=== PATIENT | female | born 1980 | race Caucasian/White ===

== ENCOUNTER 2019-10-31 09:10 | Observation (INO) | payer MEDICAID ==
[~2019-10-31] VITALS: Ht 162.6 cm; Wt 63.9 kg
--- NOTE | 2019-10-31 09:35 | NUR ---
PT W/ C/O N/V X 3 DAYS, STARTED WITH DIARRHEA BUT NO LOOSE STOOLS FOR PAST 48 HRS. UNABLE TO TOLLERATE ANY FLUIDS. STEPHEN GANNON AT BEDSIDE, PT ASSESSMENT POC REVIEWED. ORDERS REC'D. BP AND SP02 MONITORING IN PLACE. CALL LIGHT W/I REACH
[2019-10-31] MEDS ORDERED: ONDANSETRON 2MG/ML, 2ML IVPush ONE (10:00)
[2019-10-31] MEDS ORDERED: ONDANSETRON 2MG/ML, 2ML ONE (10:00)
[2019-10-31] MEDS ORDERED: SODIUM CHLORIDE 0.9% 1,000ML IVBOLUS ONE ×2 (10:00→13:30)
[2019-10-31] MEDS ORDERED: SODIUM CHLORIDE FLUSH 10ML SYR IVF ONE (10:00)
[2019-10-31 10:15] LABS: MEAN CORPUSCULAR HEMOGLOBIN 37.6 pg (27.0-34.8); MEAN CORPUSCULAR HGB CONC 33.8 g/dL (32.4-35.8); MEAN CORPUSCULAR VOLUME 111.2 fL (80-100); MEAN PLATELET VOLUME 6.8 fL (7.4-10.4); PLATELET COUNT 127 x10^3/uL (130-400); RED BLOOD COUNT 3.76 x10^6/uL (3.82-5.3); RED CELL DISTRIBUTION WIDTH 13.2 % (9.6-15.2)
[2019-10-31 10:20] LABS: ALANINE AMINOTRANSFERASE 43 U/L (12-78); ALBUMIN 3.4 g/dL (3.4-5.0); ANION GAP 9 mmol/L (5-15); CALCIUM 7.8 mg/dL (8.5-10.1); CHLORIDE 106 mmol/L (98-107); CREATININE 0.58 mg/dL (0.55-1.02)
[2019-10-31 10:25] LABS: ALKALINE PHOSPHATASE 76 U/L (45-117); BILIRUBIN,TOTAL 0.7 mg/dL (0.2-1.0); TOTAL PROTEIN 6.8 g/dL (6.4-8.2)
[2019-10-31 10:34] LABS: CULTURE INDICATED? YES; MICROSCOPIC INDICATED
[2019-10-31 10:41] LABS: MD YES
[2019-10-31 10:47] LABS: BAND#(MANUAL) 0.83 x10^3/uL; BANDS%(MANUAL) 23 % (0-7); EOS#(MANUAL) 0.04 x10^3/uL (0.0-0.4); EOS% (MANUAL) 1 % (1-7); LYMPH#(MANUAL) 0.68 x10^3/uL (1-3.4); LYMPHS% (MANUAL) 19 % (22-44); MONOS#(MANUAL) 0.14 x10^3/uL (0.3-2.7); MONOS% (MANUAL) 4 % (2-9); SEG#(MANUAL) 1.91 x10^3/uL (1.8-6.8); SEGS% (MANUAL) 53 % (42-75)
[2019-10-31 10:48] LABS: ANISOCYTOSIS 1+; POLYCHROMASIA 1+
[2019-10-31 10:50] LABS: <PLATELET ESTIMATE> DECREASED; <PLT MORPHOLOGY> NORMAL PLT MORPH
--- NOTE | 2019-10-31 11:11 | NUR ---
LABS RESULTED. IVF INFUSION COMPLETED. PT RPTS IMPROVEMENT IN [place] AND STATES SHE HAS HAD NO MORE EPISODES OF DRY HEAVES. ICE CHIPS AT BEDSIDE.
[2019-10-31] MEDS ORDERED: CEFDINIR 300 MG CAPSULE PO ONE (11:30)
[2019-10-31] MEDS ORDERED: POTASSIUM CHLORIDE 20 MEQ TAB.ER.PRT PO ONE (11:30)
[2019-10-31] MEDS ORDERED: METOCLOPRAMIDE 5 MG/ML, 2ML ONE (11:36)
[2019-10-31] MEDS ORDERED: METOCLOPRAMIDE 5 MG/ML, 2ML IVPush ONE (12:00)
[2019-10-31] MEDS ORDERED: CEFTRIAXONE PMX 1GM/50ML 50 ML IV ONE (12:00)
[2019-10-31] MEDS ORDERED: CEFTRIAXONE PMX 1GM/50ML 50 ML ONE (12:05)
--- NOTE | 2019-10-31 12:10 | NUR ---
PT OOB AMBULATE TO BATHROOM, RPTS VOIDING W/O DIFFICULT, RTD TO ROOM W/O INCIDENT. PT TOLLERATING SIPS OF PO FLUIDS. BC X 2 DRAWN, ANTIBIOTIC INFUSING W/O DIFFICULTY. CALL LIGHT W/I REACH
[2019-10-31] MEDS ORDERED: NS + 40MEQ KCL 1,000 ML IV ONE ×2 (12:46→13:06)
--- NOTE | 2019-10-31 12:57 | NUR ---
PT AWARE OF PLAN FOR ADMISSION. CALL LIGHT W/I REACH. VSS
--- NOTE | 2019-10-31 13:29 | NUR ---
[facility] HAND-OFF REPORT RECEIVED FROM KELBY ESTRELLA. ASSUMING CARE OF PATIENT.
[2019-10-31] MEDS: ENOXAPARIN 40 MG/0.4 ML SQ SCH ×2 (13:30→17:06)
[2019-10-31] MEDS ORDERED: METOCLOPRAMIDE 5 MG/ML, 2ML IVPush PRN (13:30)
[2019-10-31] MEDS: SODIUM CHLORIDE 0.9% 1,000 ML IV SCH ×2 (13:30→18:00)
[2019-10-31] MEDS ORDERED: morphine SULFATE 10 MG/ML, 1ML IVPush PRN (13:30)
[2019-10-31] MEDS ORDERED: ONDANSETRON 2MG/ML, 2ML IVPush PRN (13:30)
[2019-10-31] MEDS ORDERED: POTASSIUM CHLORIDE 40 MEQ in SODIUM CHLORIDE 0.9% 500 ML IV ONE (13:30)
[2019-10-31] MEDS ORDERED: POTASSIUM CHLORIDE 20 MEQ TAB.ER.PRT ONE (13:35)
--- NOTE | 2019-10-31 13:44 | NUR ---
PO POTASSIUM TABS GIVEN AND IV FLUIDS WITH POTASSIUM STARTED. ANOTHER WARM BLANKET PROVIDED. PT HAS NO COMPLAINTS AT THIS TIME. CALL BUTTON WITHIN REACH.
--- NOTE | 2019-10-31 15:37 | NUR ---
PATIENT AMBULATED TO THE BATHROOM WITH A STEADY GAIT.
[2019-10-31] MEDS ORDERED: ENOXAPARIN 40 MG/0.4 ML ONE (16:16)
--- NOTE | 2019-10-31 16:21 | NUR ---
CLEAR LIQUID FOOD TRAY DELIVERED.
--- NOTE | 2019-10-31 17:01 | NUR ---
[facility] TELEPHONE HAND-OFF REPORT TO KELBY LEA. PT READY TO GO TO HOSPITAL ROOM.
[2019-10-31 19:30] VITALS: BP 155/102
[2019-11-01] MEDS: SODIUM CHLORIDE 0.9% 1,000 ML IV SCH ×2 (00:49→10:20)
[2019-11-01 03:31] VITALS: BP 154/105
[2019-11-01] MEDS ORDERED: hydrALAzine 20 MG/ML, 1ML IV ONE (04:00)
[2019-11-01] MEDS: ACETAMINOPHEN 325 MG TABLET PO PRN ×2 (04:12→11:45)
[2019-11-01 07:20] VITALS: BP 149/98
[2019-11-01] MEDS ORDERED: MAGNESIUM SULFATE PMX 2GM/50ML 50 ML IV ONE (07:30)
[2019-11-01 08:07] LABS: ALANINE AMINOTRANSFERASE 33 U/L (12-78); ALBUMIN 3.3 g/dL (3.4-5.0); ANION GAP 10 mmol/L (5-15); CALCIUM 7.5 mg/dL (8.5-10.1); CHLORIDE 105 mmol/L (98-107); CREATININE 0.39 mg/dL (0.55-1.02)
[2019-11-01 08:09] LABS: ALKALINE PHOSPHATASE 64 U/L (45-117); BILIRUBIN,TOTAL 0.7 mg/dL (0.2-1.0); TOTAL PROTEIN 6.5 g/dL (6.4-8.2)
[2019-11-01 08:52] LABS: MEAN CORPUSCULAR HGB CONC 33.9 g/dL (32.4-35.8); MEAN CORPUSCULAR VOLUME 109.2 fL (80-100); MEAN PLATELET VOLUME 7.3 fL (7.4-10.4); PLATELET COUNT 118 x10^3/uL (130-400); RED CELL DISTRIBUTION WIDTH 13.3 % (9.6-15.2)
[2019-11-01 08:53] LABS: MD YES
[2019-11-01 09:19] LABS: BAND#(MANUAL) 1.13 x10^3/uL; BANDS%(MANUAL) 21 % (0-7); BASOS#(MANUAL) 0.05 x10^3/uL (0-0.1); BASOS% (MANUAL) 1 % (0-1); LYMPH#(MANUAL) 2.11 x10^3/uL (1-3.4); LYMPHS% (MANUAL) 39 % (22-44); MONOS#(MANUAL) 0.22 x10^3/uL (0.3-2.7); MONOS% (MANUAL) 4 % (2-9); REACTIVE LYMPHS # (MANUAL) 0.05 x10^3/uL (0-0); REACTIVE LYMPHS % (MANUAL) 1 % (0-0); SEG#(MANUAL) 1.84 x10^3/uL (1.8-6.8); SEGS% (MANUAL) 34 % (42-75)
[2019-11-01 09:22] LABS: ANISOCYTOSIS 1+
[2019-11-01 09:23] LABS: <PLATELET ESTIMATE> DECREASED; <PLT MORPHOLOGY> NORMAL PLT MORPH
[2019-11-01] MEDS ORDERED: AMPICILLIN/SULBACTAM 3 GM in SODIUM CHLORIDE 0.9% 100 ML IV STA (12:58)
[2019-11-01] MEDS ORDERED: AMOX1TAB64 PO (12:59)
[2019-11-01 14:04] VITALS: BP 160/98
[2019-11-01] MEDS ORDERED: ENOXAPARIN 40 MG/0.4 ML SQ SCH (17:00)
== END 2019-11-01 16:31 | disposition home or self-care (01) ==
LOC: ED 12:30 → INTOOBSV 12:43 → EDIP 12:43 → UNDOADMOB 12:43 → EDIP 13:25 → 3N 17:19 → OBSVTOIN 11-01 09:16 → INTOOBSV 11-01 09:16 → DCLOUNGE 11-01 16:28
PROVIDERS: ADMIT Internal Medicine Infectious Disease; ATTEND Internal Medicine Infectious Disease
DX: A41.9 Sepsis, unspecified organism (principal); A08.4 Viral intestinal infection, unspecified; E87.2 Acidosis; E87.6 Hypokalemia; E86.0 Dehydration; D69.59 Other secondary thrombocytopenia; N39.0 Urinary tract infection, site not specified
CPT/HCPCS: 36415; 80053; 81001; 83605; 83690; 83735; 84100; 84145; 84703; 85025; 87040; 87077; 87086; 87186; 96361; 96365; 96366; 96367; 96372; 96375; 99284; G0378; J0295; J0360; J0696; J1650; J2405; J2765; J3475; J3480; J7030